=== PATIENT | female | born 1940 | race Caucasian/White ===

== ENCOUNTER 2019-06-16 15:03 | Emergency (ER) | payer OTHER ==
[~2019-06-16] VITALS: Ht 160 cm; Wt 43.1 kg
[2019-06-16 16:06] LABS: ABSOLUTE BASOPHILS 0.1 thou/uL (0.0-0.2); ABSOLUTE EOSINOPHILS 0.6 thou/uL (0.0-0.7); ABSOLUTE LYMPHOCYTES 1.1 thou/uL (0.8-5.3); ABSOLUTE MONOCYTES 0.4 thou/uL (0.0-1.2); ABSOLUTE NEUTROPHILS 4.5 thou/uL (1.6-8.1); BASOPHILS 1.4 %; EOSINOPHILS 8.5 %; HEMATOCRIT 39.4 % (37.0-47.0); HEMOGLOBIN 13.6 gm/dL (12.0-15.0); MCH 32.1 pg (26.0-34.0); MCHC 34.6 g/dL (28.0-37.0); MCV 92.8 fL (80.0-100.0); MONOCYTES 6.1 %; MPV 8.1 fl. (7.2-11.1); NUCLEATED RBCS 0 /100WBC; PLATELET COUNT* 160 thou/uL (150-400); RBC 4.24 mil/uL (4.20-5.00); RDW-CV 15.6 % (10.5-14.5); WBC 6.7 thou/uL (4.0-11.0)
[2019-06-16 16:21] LABS: ALBUMIN 3.8 g/dL (3.4-5.0); CALCIUM 9.6 mg/dL (8.5-10.1); CREATININE 1.2 mg/dL (0.6-1.3); TOTAL BILIRUBIN 0.5 mg/dL (<0.1-1.0)
[2019-06-16 16:25] LABS: POTASSIUM 3.8 mmol/L (3.5-5.1)
[2019-06-16] MEDS ORDERED: ZESTORETIC 20-1 EACH PO (17:06)
[2019-06-16 17:13] VITALS: BP 180/97
--- NOTE | 2019-06-17 10:29 | EKG ---
[place] [address] ELECTROCARDIOGRAM REPORT Name: ALEX JOYCE [id number] Admission: 06/16/19 Attend Phys: Discharge: 06/16/19 Date of : 42 Report #: [id number] THIS REPORT FOR: //name// [facility] ED Test Date: 2019-06-16 Test Time: 15:26:26 Pat Name: ALEX JOYCE Department: Room: Gender: F Public Health Administrator: : [id number] Requested By: Corey George Order Number: [id number] MD: Vitaliy Gaspar Measurements Intervals [place] Rate: 83 P: 87 ME: 158 QRS: 29 QRSD: 84 T: 64 QT: 390 QTc: 459 Interpretive Statements Sinus rhythm Left atrial enlargement No previous ECG available for comparison Electronically Signed On 06-17-2019 10:29:09 [employer] by Vitaliy Gaspar [email or web address] <ELECTRONICALLY SIGNED> By: Vitaliy Gaspar MD, [facility] 06/17/19 1029 1526 1526 Vitaliy Gaspar MD, FACC /EPI
== END 2019-06-16 17:14 | disposition home or self-care (01) ==
LOC: M.ERS 15:03
PROVIDERS: Family Medicine
DX: I10 Essential (primary) hypertension (principal); Z90.5 Acquired absence of kidney